=== PATIENT | male | born 1980 | race Caucasian/White ===

== ENCOUNTER 2017-11-25 23:35 | Emergency (ER) | payer OTHER ==
[~2017-11-25] VITALS: Ht 188 cm; Wt 97.8 kg
[~2017-11-25 23:35] MED LIST: ALLO100T30 PO; OXYC-307 PO
[2017-11-26 00:27] VITALS: BP 140/100
[2017-11-26] MEDS ORDERED: THIAMINE 100MG TABLET PO ONE (00:30)
[2017-11-26] MEDS ORDERED: LORazepam 2 MG/ML, 1ML IVPush PRN (00:30)
[2017-11-26] MEDS ORDERED: FAMOTIDINE 20 MG TABLET PO ONE (00:30)
[2017-11-26] MEDS ORDERED: ONDANSETRON 2MG/ML, 2ML IVPush ONE (00:30)
[2017-11-26] MEDS ORDERED: SODIUM CHLORIDE 0.9% 1,000ML IVBOLUS ONE (00:30)
[2017-11-26] MEDS ORDERED: SODIUM CHLORIDE FLUSH 10ML SYR IVF ONE (00:30)
[2017-11-26] MEDS ORDERED: LORazepam 2 MG/ML, 1ML ONE (00:43)
[2017-11-26] MEDS ORDERED: ONDANSETRON ODT 4 MG ONE (00:43)
[2017-11-26] MEDS ORDERED: FAMOTIDINE 20 MG TABLET ONE (00:43)
[2017-11-26 00:44] LABS: BASOPHILS # (AUTO) 0.03 x10^3/uL (0-0.1); BASOPHILS % (AUTO) 1 % (0-1); EOSINOPHILS # (AUTO) 0.01 x10^3/uL (0-0.4); EOSINOPHILS % (AUTO) 0 % (1-7); LYMPHOCYTES % (AUTO) 34 % (22-44); MD NO; MEAN CORPUSCULAR HEMOGLOBIN 34.2 pg (27.5-34.5); MEAN CORPUSCULAR HGB CONC 34.8 g/dL (33.2-36.2); MEAN CORPUSCULAR VOLUME 98.4 fL (81-97); MEAN PLATELET VOLUME 7.8 fL (7.4-10.4); MONOCYTES # (AUTO) 0.52 x10^3/uL (0.2-0.8); MONOCYTES % (AUTO) 8 % (2-9); NEUTROPHILS # (AUTO) 3.59 x10^3/uL (1.8-6.8); NEUTROPHILS % (AUTO) 58 % (42-75); PLATELET COUNT 281 x10^3/uL (130-400); RED BLOOD COUNT 5.31 x10^6/uL (4.38-5.82); RED CELL DISTRIBUTION WIDTH 13.2 % (9.4-14.8)
[2017-11-26 00:51] LABS: INTERNATIONAL NORMALIZED RATIO 1.07 (0.93-1.1)
[2017-11-26 00:54] LABS: ALANINE AMINOTRANSFERASE 221 U/L (12-78); ANION GAP 12 mmol/L (5-15); CALCIUM 8.5 mg/dL (8.5-10.1); CHLORIDE 104 mmol/L (98-107); CREATININE 0.93 mg/dL (0.7-1.3)
[2017-11-26 00:56] LABS: ALKALINE PHOSPHATASE 75 U/L (45-117); BILIRUBIN,TOTAL 0.6 mg/dL (0.2-1.0); TOTAL PROTEIN 8.4 g/dL (6.4-8.2)
== END 2017-11-26 01:39 | disposition home or self-care (01) ==
LOC: ED 23:59
DX: R11.2 Nausea with vomiting, unspecified (principal); Z79.899 Other long term (current) drug therapy; R79.1 Abnormal coagulation profile
CPT/HCPCS: 36415; 80053; 80307; 83690; 85025; 85610; 85730; 93005; 96361; 96374; 96375; 99285; J2060; J2405; J7030

== ENCOUNTER 2018-09-01 09:02 | Emergency (ER) | payer OTHER ==
[~2018-09-01] VITALS: Ht 188 cm; Wt 98.0 kg
[2018-09-01] MEDS ORDERED: LORazepam 1MG TABLET PO ONE (09:30)
[2018-09-01] MEDS ORDERED: LORazepam 1MG TABLET ONE (09:34)
[2018-09-01 10:01] LABS: BASOPHILS # (AUTO) 0.03 x10^3/uL (0-0.1); BASOPHILS % (AUTO) 1 % (0-1); EOSINOPHILS # (AUTO) 0.04 x10^3/uL (0-0.4); EOSINOPHILS % (AUTO) 1 % (1-7); LYMPHOCYTES # (AUTO) 1.28 x10^3/uL (1-3.4); LYMPHOCYTES % (AUTO) 19 % (22-44); MD NO; MEAN CORPUSCULAR HEMOGLOBIN 33.4 pg (27.5-34.5); MEAN CORPUSCULAR HGB CONC 33.9 g/dL (33.2-36.2); MEAN CORPUSCULAR VOLUME 98.6 fL (81-97); MEAN PLATELET VOLUME 7.4 fL (7.4-10.4); MONOCYTES # (AUTO) 0.38 x10^3/uL (0.2-0.8); MONOCYTES % (AUTO) 6 % (2-9); NEUTROPHILS # (AUTO) 4.93 x10^3/uL (1.8-6.8); NEUTROPHILS % (AUTO) 74 % (42-75); PLATELET COUNT 245 x10^3/uL (130-400); RED BLOOD COUNT 4.38 x10^6/uL (4.38-5.82); RED CELL DISTRIBUTION WIDTH 13.4 % (9.4-14.8)
[2018-09-01 10:11] LABS: ALBUMIN 3.7 g/dL (3.4-5.0); ANION GAP 3 mmol/L (5-15); CALCIUM 8.9 mg/dL (8.5-10.1); CHLORIDE 107 mmol/L (98-107); CREATININE 0.83 mg/dL (0.7-1.3)
[2018-09-01 10:30] VITALS: BP 137/93
[2018-09-01] MEDS ORDERED: LISI-167 PO (10:31)
--- NOTE | 2018-09-01 10:51 | NUR ---
Patient/Caregiver given discharge instructions and they have confirmed that they understand the instructions. Patient ambulatory with steady gait.
== END 2018-09-01 10:52 | disposition home or self-care (01) ==
LOC: ED 10:13
DX: F10.239 Alcohol dependence with withdrawal, unspecified (principal); R45.4 Irritability and anger; R45.1 Restlessness and agitation; I10 Essential (primary) hypertension; M10.9 Gout, unspecified; Y90.9 Presence of alcohol in blood, level not specified
CPT/HCPCS: 36415; 80048; 82040; 85025; 93005; 99284

== ENCOUNTER 2018-10-30 14:15 | Emergency (ER) | payer OTHER ==
[~2018-10-30] VITALS: Ht 188 cm; Wt 97.0 kg
[~2018-10-30 14:15] MED LIST changes: +LISI-167 PO
[2018-10-30 15:38] LABS: BASOPHILS # (AUTO) 0.02 x10^3/uL (0-0.1); BASOPHILS % (AUTO) 0 % (0-1); EOSINOPHILS # (AUTO) 0.02 x10^3/uL (0-0.4); EOSINOPHILS % (AUTO) 0 % (1-7); LYMPHOCYTES # (AUTO) 1.13 x10^3/uL (1-3.4); LYMPHOCYTES % (AUTO) 17 % (22-44); MD NO; MEAN CORPUSCULAR HEMOGLOBIN 34.2 pg (27.5-34.5); MEAN CORPUSCULAR HGB CONC 34.4 g/dL (33.2-36.2); MEAN CORPUSCULAR VOLUME 99.4 fL (81-97); MEAN PLATELET VOLUME 7.7 fL (7.4-10.4); MONOCYTES # (AUTO) 0.53 x10^3/uL (0.2-0.8); MONOCYTES % (AUTO) 8 % (2-9); NEUTROPHILS # (AUTO) 4.81 x10^3/uL (1.8-6.8); NEUTROPHILS % (AUTO) 74 % (42-75); PLATELET COUNT 259 x10^3/uL (130-400); RED BLOOD COUNT 4.47 x10^6/uL (4.38-5.82); RED CELL DISTRIBUTION WIDTH 13.3 % (9.4-14.8)
[2018-10-30 15:46] LABS: ALANINE AMINOTRANSFERASE 50 U/L (12-78); ALBUMIN 4.1 g/dL (3.4-5.0); ANION GAP 7 mmol/L (5-15); CALCIUM 9.2 mg/dL (8.5-10.1); CHLORIDE 102 mmol/L (98-107); CREATININE 0.88 mg/dL (0.7-1.3)
[2018-10-30 15:48] LABS: ALKALINE PHOSPHATASE 63 U/L (45-117); BILIRUBIN,TOTAL 0.6 mg/dL (0.2-1.0)
[2018-10-30] MEDS ORDERED: SODIUM CHLORIDE FLUSH 10ML SYR IVF ONE (16:30)
[2018-10-30] MEDS ORDERED: ONDANSETRON 2MG/ML, 2ML IVPush ONE (16:30)
[2018-10-30] MEDS ORDERED: MORPHINE SULFATE 4 MG/ML, 1ML IVPush PRN (16:30)
[2018-10-30] MEDS ORDERED: ONDANSETRON 2MG/ML, 2ML ONE (16:36)
[2018-10-30] MEDS ORDERED: MORPHINE SULFATE 4 MG/ML, 1ML ONE ×2 (16:37→17:31)
[2018-10-30] MEDS ORDERED: LISI-170 PO (16:50)
--- NOTE | 2018-10-30 16:51 | NUR ---
RIGHT UPPER QUADRANT PAIN X 2 DAYS, DENIES N/V/D. REPORTS BOUT OF BINGE DRINKING THEN NOTICED SXS. NO ABD SURGICAL HX, AFEBRILE, VSS
--- NOTE | 2018-10-30 16:52 | NUR ---
US AT BEDSIDE
--- NOTE | 2018-10-30 17:00 | NUR ---
MORPHINE RETURNED PATIENT SCARED "IT WILL BE TOO MUCH." ASKED PROVIDER FOR TORADOL ORDER INSTEAD
--- NOTE | 2018-10-30 17:25 | NUR ---
AFTER DISCUSSION W/ MD. PATIENT WANT MORPHINE. TO ADMINISTER SHORTLY. VSS. NOT IN ANY OBVIOUS DISCOMFORT. ON MONITOR, CALL RAMOS IN HAND, SIDE RAILS UP. TO CT SCAN. UA SENT. ESTIMATED ON ESTIMATED POC
[2018-10-30] MEDS ORDERED: OMNIPAQUE 350 MG/ML, 100ML BOTTLE ONE (17:27)
[2018-10-30 17:29] LABS: CULTURE INDICATED? NO; MICROSCOPIC NOT IND
--- NOTE | 2018-10-30 18:25 | NUR ---
PATIENT REPORTS PAIN IMPROVED TO 3/10, VSS. UPDATED ESTIMATED POC (RECHECK PLACED). RESTING COMFORTABLE IN BED WITH CALL RAMOS IN HAND, SIDE RAILS UP. ADVISED HE CALL A RIDE HE WAS JUST MEDICATED
[2018-10-30 19:36] VITALS: BP 134/86
== END 2018-10-30 19:38 | disposition home or self-care (01) ==
LOC: ED 16:28
DX: R10.11 Right upper quadrant pain (principal); I10 Essential (primary) hypertension; M10.9 Gout, unspecified
CPT/HCPCS: 36415; 71045; 74177; 76700; 80053; 81003; 83690; 85025; 96374; 96375; 99284; J2405; Q9967